=== PATIENT | female | born 1995 | race Two or more races ===

== ENCOUNTER 2023-12-02 13:05 | Emergency (ER) | payer OTHER ==
[~2023-12-02] VITALS: Ht 165.1 cm; Wt 61.0 kg
[2023-12-02 13:15] VITALS: TEMP 98.4
[2023-12-02] MEDS ORDERED: OMEP20 PO (13:17)
[2023-12-02 13:45] VITALS: BP 120/96; PULSE 95; RESP 18
[2023-12-02] MEDS ORDERED: METH-661 PO (14:23)
[2023-12-02] MEDS: LIDOCAINE 5% TRANSDERMAL PATCH TD ONE (14:24)
[2023-12-02] MEDS ORDERED: LIDO700A15 TP (14:27)
== END 2023-12-02 14:31 | disposition home or self-care (01) ==
LOC: EMS 13:05
DX: S39.012A Strain of muscle, fascia and tendon of lower back, initial encounter (principal); V49.88XA Car occupant (driver) (passenger) injured in other specified transport accidents, initial encounter; Y93.89 Activity, other specified; Y92.89 Other specified places as the place of occurrence of the external cause; Y99.8 Other external cause status
CPT/HCPCS: 99283; 99406